=== PATIENT | female | born 1975 | race Asian ===

== ENCOUNTER 2016-05-18 23:44 | Emergency (ER) | payer OTHER ==
[~2016-05-18] VITALS: Ht 149.9 cm; Wt 90.7 kg
[2016-05-19] MEDS ORDERED: PRENATAL1 T10 PO (00:12)
[2016-05-19 00:59] VITALS: BP 151/89; TEMP 98.3
== END 2016-05-19 00:55 | disposition home or self-care (01) ==
LOC: ED 23:44
DX: O36.92X0 Maternal care for fetal problem, unspecified, second trimester, not applicable or unspecified (principal)
CPT/HCPCS: 99281

== ENCOUNTER 2017-04-19 11:31 | Outpatient (CLI) | payer OTHER ==
[~2017-04-19 11:31] MED LIST: PRENATAL1 T10 PO
== END 2017-04-19 20:02 | disposition home or self-care (01) ==
LOC: MAMMO 11:31
DX: Z12.31 Encounter for screening mammogram for malignant neoplasm of breast (principal)

== ENCOUNTER 2017-04-21 16:33 | Emergency (ER) | payer OTHER ==
[~2017-04-21] VITALS: Ht 160 cm; Wt 99.3 kg
[2017-04-21 16:47] VITALS: TEMP 98.3
[2017-04-21 18:45] LABS: PLATELET COUNT 306 K/uL (152-353)
[2017-04-21 18:58] VITALS: BP 181/107
== END 2017-04-21 18:59 | disposition home or self-care (01) ==
LOC: ED 16:33
PROVIDERS: Specialist
DX: I10 Essential (primary) hypertension (principal)
CPT/HCPCS: 36415; 80048; 81000; 85027; 99283; J0360

== ENCOUNTER 2018-10-16 14:20 | Emergency (ER) | payer OTHER ==
[~2018-10-16] VITALS: Ht 157.5 cm; Wt 94.3 kg
[2018-10-16 14:55] LABS: PLATELET COUNT 250 K/uL (152-353)
[2018-10-16 15:07] LABS: POTASSIUM 4.7 mmol/L (3.6-5.2); SODIUM 136 mmol/L (136-145)
[2018-10-16 16:40] VITALS: BP 136/85; TEMP 98
== END 2018-10-16 16:40 | disposition home or self-care (01) ==
LOC: ED 14:20
PROVIDERS: Emergency Medicine
DX: R07.89 Other chest pain (principal); M79.602 Pain in left arm
CPT/HCPCS: 36415; 80053; 82550; 82553; 83735; 83880; 84484; 85027; 93005; 96374; 99284; J1885

== ENCOUNTER 2018-11-13 00:22 | Emergency (ER) | payer OTHER ==
[~2018-11-13] VITALS: Ht 157.5 cm; Wt 94.3 kg
[2018-11-13 01:13] LABS: SODIUM 140 mmol/L (136-145)
[2018-11-13 01:15] LABS: PLATELET COUNT 303 K/uL (152-353)
[2018-11-13 01:26] LABS: PARTIAL THROMBOPLASTIN TIME 24.4 SECONDS (24.5-33.6)
[2018-11-13 01:50] VITALS: BP 145/81; TEMP 97.8
== END 2018-11-13 01:50 | disposition home or self-care (01) ==
LOC: ED 00:22
PROVIDERS: Hospitalist
DX: K21.9 Gastro-esophageal reflux disease without esophagitis (principal); I16.0 Hypertensive urgency
CPT/HCPCS: 80053; 84484; 85027; 85610; 85730; 93005; 99283

== ENCOUNTER 2018-12-14 02:01 | Emergency (ER) | payer OTHER ==
[~2018-12-14] VITALS: Ht 157.5 cm; Wt 94.3 kg
[2018-12-14 02:48] LABS: PLATELET COUNT 339 K/uL (152-353)
[2018-12-14 02:51] LABS: POTASSIUM 3.7 mmol/L (3.6-5.2); SODIUM 140 mmol/L (136-145)
[2018-12-14 03:17] LABS: PARTIAL THROMBOPLASTIN TIME 24.3 SECONDS (24.5-33.6)
[2018-12-14 05:45] VITALS: BP 155/98; TEMP 98.4
== END 2018-12-14 05:45 | disposition home or self-care (01) ==
LOC: ED 02:01
PROVIDERS: Emergency Medicine
DX: R07.89 Other chest pain (principal); K62.5 Hemorrhage of anus and rectum; M54.5 Low back pain
CPT/HCPCS: 36415; 80053; 82550; 82553; 83880; 84484; 85027; 85610; 85730; 93005; 99284; Q9963

== ENCOUNTER 2018-12-14 18:08 | Emergency (ER) | payer OTHER ==
[~2018-12-14] VITALS: Ht 157.5 cm; Wt 94.3 kg
[2018-12-14 21:20] VITALS: BP 131/81; TEMP 98.1
== END 2018-12-14 21:21 | disposition home or self-care (01) ==
LOC: ED 18:08
DX: F43.22 Adjustment disorder with anxiety (principal); I16.0 Hypertensive urgency
CPT/HCPCS: 93005; 99283

== ENCOUNTER 2018-12-23 04:07 | Emergency (ER) | payer OTHER ==
[~2018-12-23] VITALS: Ht 157.5 cm; Wt 88.9 kg
[2018-12-23 05:37] LABS: PLATELET COUNT 325 K/uL (152-353)
[2018-12-23 05:50] LABS: POTASSIUM 3.7 mmol/L (3.6-5.2); SODIUM 138 mmol/L (136-145)
[2018-12-23 07:36] VITALS: BP 147/90; TEMP 98.2
== END 2018-12-23 07:44 | disposition home or self-care (01) ==
LOC: ED 04:07
PROVIDERS: Family Medicine
DX: R06.4 Hyperventilation (principal); F41.9 Anxiety disorder, unspecified; I10 Essential (primary) hypertension; R07.89 Other chest pain; R00.0 Tachycardia, unspecified
CPT/HCPCS: 36415; 80053; 81000; 82550; 82553; 84484; 85027; 93005; 99284

== ENCOUNTER 2019-03-15 15:19 | Emergency (ER) | payer OTHER ==
[~2019-03-15] VITALS: Ht 157.5 cm; Wt 97.5 kg
[2019-03-15 15:30] VITALS: TEMP 98.6
[2019-03-15 16:25] LABS: PLATELET COUNT 378 K/uL (152-353)
[2019-03-15 16:31] LABS: POTASSIUM 3.3 mmol/L (3.6-5.2); SODIUM 136 mmol/L (136-145)
[2019-03-15 16:42] LABS: PARTIAL THROMBOPLASTIN TIME 24.6 SECONDS (24.5-33.6)
[2019-03-15 17:56] VITALS: BP 136/76
== END 2019-03-15 17:57 | disposition home or self-care (01) ==
LOC: ED 15:19
PROVIDERS: Hospitalist
DX: K21.9 Gastro-esophageal reflux disease without esophagitis (principal); R60.0 Localized edema; R00.0 Tachycardia, unspecified
CPT/HCPCS: 36415; 80053; 81000; 81025; 82550; 82553; 83880; 84484; 85027; 85610; 85730; 93005; 96374; 99284; J1940

== ENCOUNTER 2019-08-10 01:50 | Emergency (ER) | payer OTHER ==
[~2019-08-10] VITALS: Ht 160 cm; Wt 95.3 kg
[2019-08-10 02:04] VITALS: TEMP 99.1
[2019-08-10 02:56] LABS: PLATELET COUNT 379 K/uL (152-353)
[2019-08-10 03:08] LABS: POTASSIUM 3.2 mmol/L (3.6-5.2); SODIUM 138 mmol/L (136-145)
[2019-08-10 08:02] VITALS: BP 142/86
== END 2019-08-10 08:02 | disposition home or self-care (01) ==
LOC: ED 01:50
DX: R07.89 Other chest pain (principal)
CPT/HCPCS: 36415; 80053; 81000; 81025; 83735; 84484; 85027; 93005; 96372; 99283; J1885

== ENCOUNTER 2021-07-12 23:56 | Emergency (ER) | payer OTHER ==
[~2021-07-12] VITALS: Ht 160 cm; Wt 95.3 kg
[2021-07-13 01:15] VITALS: BP 151/77; TEMP 97.5
== END 2021-07-13 01:20 | disposition home or self-care (01) ==
LOC: ED 23:56
DX: N94.6 Dysmenorrhea, unspecified (principal)
CPT/HCPCS: 81000; 81025; 99284